=== PATIENT | male | born 1960 | race Caucasian/White ===

== ENCOUNTER 2017-09-22 06:21 | Emergency (ER) | payer MEDICARE ==
[2017-09-22 06:31] VITALS: RESP 18
--- NOTE | 2017-09-22 06:42 | ED ---
General Adult HPI - General Chief complaint: Fall Stated complaint: Weakness Time Seen by Provider: 09/22/17 06:26 Source: patient, EMS Mode of arrival: EMS Limitations: no limitations - History of Present Illness Initial comments: Chetan is a 56-year-old male who presents the ED today via EMS for evaluation of facial injury after an apparent syncopal episode. Patient reports that this morning he got up to use the restroom, he is feeling very lightheaded, he states he was standing in the restroom and the next thing he remembers he was trying to climb up from the ground by gripping the sink and his roommate was standing over him. Patient is uncertain how long he was on the ground. Patient reports he's just been feeling very unwell. He denies any chest pain or palpitations. He denies any nausea or vomiting. He did strike his head, he did have a laceration over his right eyebrow. Patient reports that his last tetanus vaccination was approximately 3 years ago. Upon arrival his only complaint is the pain over his right eyebrow. EMS was contacted for transport to the hospital. [facility] reports that when they found the patient he was tachycardic with heart rate in the 130s and hypotensive, they established IV access and giving him IV fluids. Blood pressure improved to the low 100s. - Related Data Home Medications Medication Instructions Recorded Confirmed Levothyroxine Sodium [Synthroid] 175 mcg PO DAILY 09/22/17 09/22/17 Allergies Allergy/AdvReac Type Severity Reaction Status Date / Time No Known Allergies Allergy Verified 09/22/17 07:24 Review of Systems ROS Statement: Those systems with pertinent positive or pertinent negative responses have been documented in the HPI. ROS Other: All systems not noted in ROS Statement are negative. Constitutional: Reports: weakness Past Medical History Past Medical History: Thyroid Disorder History of Any Multi-Drug Resistant Organisms: None Reported Additional Past Surgical History / Comment(s): thyroidectomy Past Psychological History: No Psychological Hx Reported Smoking Status: Former smoker Past Alcohol Use History: None Reported Past Drug Use History: None Reported General Exam Limitations: no limitations General appearance: alert, in no apparent distress Head exam: Present: normocephalic Eye exam: Present: PERRL, EOMI ENT exam: Present: mucous membranes dry Neck exam: Present: other Respiratory exam: Absent: respiratory distress (Cervical collar in place) Cardiovascular Exam: Present: normal rhythm, tachycardia GI/Abdominal exam: Absent: soft, distended Rectal exam: Present: deferred Extremities exam: Present: normal inspection, full ROM Back exam: Present: normal inspection Neurological exam: Present: alert, oriented X3 Psychiatric exam: Present: normal affect Skin exam: Present: warm, dry, other (Laceration over right eyebrow) Course Vital Signs 09/22/17 09/22/17 09/22/17 06:24 07:38 08:20 Temperature 97.7 F Pulse Rate 135 H 123 H 110 H Respiratory 18 18 18 Rate Blood Pressure 102/61 86/55 89/52 O2 Sat by Pulse 97 99 100 Oximetry EKG Findings - EKG Comments: EKG Findings:: EKG at 6:51 AM, rate 125, rhythm is sinus tachycardia, normal axis, FL is 152, QRS 146, QTC is 461, is a right bundle branch block, there is no acute ST elevations or depressions. There are no previous for comparison. Medical Decision Making - Medical Decision Making Patient was seen and evaluated, history is obtained from the patient and EMS Patient with an apparent syncopal episode resulting in a facial injury The patient was noted to Be tachycardic and hypotensive IV fluids are infusing Labs reveal lactic acidosis of 6.9, IV fluids continued to infuse Troponin mildly elevated, over patient is hypotensive and tachycardic, at this time I'll pursue a computed tomography scan evaluating for possible dissection prior to giving any medications Evaluated CT and see a very large pulmonary wasn't, I discussed this with radiology on-call who agree there is a large cell pulmonary embolus him with evidence of right heart strain High dose heparin was ordered Patient was updated on the findings Laceration was repaired by Dr. Lake Patient care was discussed with Dr. Chang at [facility] recommend continued medical supportive care of patient and transfer when stable Patient remains mildly tachycardic and hypotensive, however he continues to mentate well and maintain a MAP of ~60 At this time I feel the patient will benefit from transfer to [facility] for ECOS - considering the patient's head trauma I do not feel he is an ideal candidate for systemic TPA - would be better served receiving catheter directed therapy. Patient care discussed with Dr. Bazan at [facility] who accepts transfer - Lab Data Result diagrams: 09/22/17 06:52 09/22/17 06:52 Lab Results 09/22/17 09/22/17 09/22/17 Range/Units 06:52 06:52 06:52 WBC 13.0 H (3.8-10.6) k/uL RBC 5.25 (4.30-5.90) m/uL Hgb 14.7 (13.0-17.5) gm/dL Hct 47.5 (39.0-53.0) % MCV 90.6 (80.0-100.0) fL MCH 28.0 (25.0-35.0) pg MCHC 30.9 L (31.0-37.0) g/dL RDW 13.1 (11.5-15.5) % Plt Count 122 L (150-450) k/uL Neutrophils % 73 % Lymphocytes % 22 % Monocytes % 3 % Eosinophils % 1 % Basophils % 0 % Neutrophils # 9.4 H (1.3-7.7) k/uL Lymphocytes # 2.8 (1.0-4.8) k/uL Monocytes # 0.3 (0-1.0) k/uL Eosinophils # 0.2 (0-0.7) k/uL Basophils # 0.1 (0-0.2) k/uL Hypochromasia Slight PT (9.0-12.0) sec INR (<1.2) APTT (22.0-30.0) sec Sodium 138 (137-145) mmol/L Potassium 3.7 (3.5-5.1) mmol/L Chloride 102 (98-107) mmol/L Carbon Dioxide 22 (22-30) mmol/L Anion Gap 14 mmol/L BUN 13 (9-20) mg/dL Creatinine 1.39 H (0.66-1.25) mg/dL Est GFR (CKD-EPI)AfAm 64 (>60 ml/min/1.73 sqM) Est GFR (CKD-EPI)NonAf 56 (>60 ml/min/1.73 sqM) Glucose 262 H (74-99) mg/dL Plasma Lactic Acid Nam (0.7-2.0) mmol/L Calcium 8.8 (8.4-10.2) mg/dL Total Bilirubin 0.7 (0.2-1.3) mg/dL AST 26 (17-59) U/L ALT 25 (21-72) U/L Alkaline Phosphatase 81 (38-126) U/L Total Creatine Kinase 50 L (55-170) U/L CK-MB (CK-2) 1.9 (0.0-2.4) ng/mL CK-MB (CK-2) Rel Index 3.8 Troponin I 0.233 H* (0.000-0.034) ng/mL Total Protein 6.4 (6.3-8.2) g/dL Albumin 3.5 (3.5-5.0) g/dL Serum Alcohol <10 mg/dL Blood Type Blood Type Confirm Blood Type Recheck Antibody Screen Spec Expiration Date 09/22/17 09/22/17 09/22/17 Range/Units 06:52 06:52 06:52 WBC (3.8-10.6) k/uL RBC (4.30-5.90) m/uL Hgb (13.0-17.5) gm/dL Hct (39.0-53.0) % MCV (80.0-100.0) fL MCH (25.0-35.0) pg MCHC (31.0-37.0) g/dL RDW (11.5-15.5) % Plt Count (150-450) k/uL Neutrophils % % Lymphocytes % % Monocytes % % Eosinophils % % Basophils % % Neutrophils # (1.3-7.7) k/uL Lymphocytes # (1.0-4.8) k/uL Monocytes # (0-1.0) k/uL Eosinophils # (0-0.7) k/uL Basophils # (0-0.2) k/uL Hypochromasia PT 11.3 (9.0-12.0) sec INR 1.2 H (<1.2) APTT 26.1 (22.0-30.0) sec Sodium (137-145) mmol/L Potassium (3.5-5.1) mmol/L Chloride (98-107) mmol/L Carbon Dioxide (22-30) mmol/L Anion Gap mmol/L BUN (9-20) mg/dL Creatinine (0.66-1.25) mg/dL Est GFR (CKD-EPI)AfAm (>60 ml/min/1.73 sqM) Est GFR (CKD-EPI)NonAf (>60 ml/min/1.73 sqM) Glucose (74-99) mg/dL Plasma Lactic Acid Nam 6.9 H* (0.7-2.0) mmol/L Calcium (8.4-10.2) mg/dL Total Bilirubin (0.2-1.3) mg/dL AST (17-59) U/L ALT (21-72) U/L Alkaline Phosphatase (38-126) U/L Total Creatine Kinase (55-170) U/L CK-MB (CK-2) (0.0-2.4) ng/mL CK-MB (CK-2) Rel Index Troponin I (0.000-0.034) ng/mL Total Protein (6.3-8.2) g/dL Albumin (3.5-5.0) g/dL Serum Alcohol mg/dL Blood Type A Positive Blood Type Confirm Blood Type Recheck CABO Indicated Antibody Screen NEGATIVE Spec Expiration Date 09/25/2017 - 235109/22/17 Range/Units 07:47 WBC (3.8-10.6) k/uL RBC (4.30-5.90) m/uL Hgb (13.0-17.5) gm/dL Hct (39.0-53.0) % MCV (80.0-100.0) fL MCH (25.0-35.0) pg MCHC (31.0-37.0) g/dL RDW (11.5-15.5) % Plt Count (150-450) k/uL Neutrophils % % Lymphocytes % % Monocytes % % Eosinophils % % Basophils % % Neutrophils # (1.3-7.7) k/uL Lymphocytes # (1.0-4.8) k/uL Monocytes # (0-1.0) k/uL Eosinophils # (0-0.7) k/uL Basophils # (0-0.2) k/uL Hypochromasia PT (9.0-12.0) sec INR (<1.2) APTT (22.0-30.0) sec Sodium (137-145) mmol/L Potassium (3.5-5.1) mmol/L Chloride (98-107) mmol/L Carbon Dioxide (22-30) mmol/L Anion Gap mmol/L BUN (9-20) mg/dL Creatinine (0.66-1.25) mg/dL Est GFR (CKD-EPI)AfAm (>60 ml/min/1.73 sqM) Est GFR (CKD-EPI)NonAf (>60 ml/min/1.73 sqM) Glucose (74-99) mg/dL Plasma Lactic Acid Nam (0.7-2.0) mmol/L Calcium (8.4-10.2) mg/dL Total Bilirubin (0.2-1.3) mg/dL AST (17-59) U/L ALT (21-72) U/L Alkaline Phosphatase (38-126) U/L Total Creatine Kinase (55-170) U/L CK-MB (CK-2) (0.0-2.4) ng/mL CK-MB (CK-2) Rel Index Troponin I (0.000-0.034) ng/mL Total Protein (6.3-8.2) g/dL Albumin (3.5-5.0) g/dL Serum Alcohol mg/dL Blood Type Blood Type Confirm A Positive Blood Type Recheck Antibody Screen Spec Expiration Date Disposition Clinical Impression: Pulmonary embolism, Saddle pulmonary embolus, Syncope, Lactic acid acidosis Disposition: OTHER INSTITUTION NOT DEFINED Condition: Fair Referrals: None,Stated [Primary Care Provider] - 1-2 days Decision Time: 09:40 - Out of Hospital Transfer - Req. Specs Out of Hospital Transfer - Requested Specifics: Other Emergency Center ([facility])
[2017-09-22] MEDS: SODIUM CHLORIDE 0.9% 1,000 ML IV STA ×3 (06:56→09:50)
[2017-09-22 07:03] LABS: Basophils # (A) 0.1 k/uL (0-0.2); Basophils % (A) 0 %; Eosinophils # (A) 0.2 k/uL (0-0.7); Eosinophils % (A) 1 %; HCT 47.5 % (39.0-53.0); HGB 14.7 gm/dL (13.0-17.5); Hypochromasia Slight; Lymphocytes # (A) 2.8 k/uL (1.0-4.8); Lymphocytes % (A) 22 %; MCHC 30.9 g/dL (31.0-37.0); MCV 90.6 fL (80.0-100.0); Mean Platelet Volume 8.4; Monocytes # (A) 0.3 k/uL (0-1.0); Monocytes % (A) 3 %; Neutrophils # (A) 9.4 k/uL (1.3-7.7); Neutrophils % (A) 73 %; Platelet Count 122 k/uL (150-450); RBC 5.25 m/uL (4.30-5.90); RDW 13.1 % (11.5-15.5)
[2017-09-22 07:14] LABS: INR 1.2 (<1.2); Partial Thromboplastin Time 26.1 sec (22.0-30.0); Prothrombin Time 11.3 sec (9.0-12.0)
[2017-09-22 07:15] LABS: ALT 25 U/L (21-72); AST 26 U/L (17-59); Albumin 3.5 g/dL (3.5-5.0); Alcohol <10 mg/dL; Alkaline Phosphatase 81 U/L (38-126); Anion Gap 14 mmol/L; Blood Urea Nitrogen 13 mg/dL (9-20); Calcium 8.8 mg/dL (8.4-10.2); Carbon Dioxide 22 mmol/L (22-30); Chloride 102 mmol/L (98-107); Glucose 262 mg/dL (74-99); Potassium 3.7 mmol/L (3.5-5.1); Sodium 138 mmol/L (137-145); Total Bilirubin 0.7 mg/dL (0.2-1.3); Total Protein 6.4 g/dL (6.3-8.2)
--- NOTE | 2017-09-22 07:35 | CT ---
EXAMINATION TYPE: CT brain cy tony con DATE OF EXAM: 09/22/2017 COMPARISON: HISTORY: Weakness and fall CT DLP: 1491 mGycm, Automated exposure control for dose reduction was used. CONTRAST: Patient injected with 0 mL of Isovue 300. CT of the brain is performed utilizing 3 mm thick sections through the posterior fossa and 3 mm thick sections through the remaining calvarium. Study is performed within 24 hours of arrival to the hospital. No abnormal hyperdensity is present to suggest an acute intracranial hemorrhage. No mass lesion is evident. No acute infarcts are evident. Ventricles and sulci are appropriate for the patient age. Paranasal sinuses and mastoid air cells within the [id number] are clear. IMPRESSIONS: 1. Normal CT brain. CT cervical spine. COMPARISON: None CT of the cervical spine is performed in the axial plane at 2 mm thick sections. Reconstructed image s in the coronal, and sagittal plane are reviewed on the computer. No acute fractures are evident. Vertebral body alignment is normal. Disc space narrowing is present C5-6. Remaining disc heights are preserved. Some mild spurring at C5- 6 is present some endplate spurring into the spinal canal is present at C5-6 with minimal anterior th ecal sac compression. Vertebral body heights are preserved. No spinal canal stenosis is evident. No neural foraminal stenosis is evident. IMPRESSIONS: 1. Degenerative disc changes and endplate changes C5-6.
--- NOTE | 2017-09-22 07:40 | CT ---
EXAMINATION TYPE: CT facial bones wo con DATE OF EXAM: 09/22/2017 COMPARISON: None HISTORY: Weakness and fall CT DLP: 617 mGycm CONTRAST: 0 mL of Isovue 300 The paranasal sinuses are examined in the axial plane at 2 mm thick sections. Reconstructed images i n the coronal plane were obtained. There is dental amalgam scatter artifact present. Some minimal soft tissue swelling over the right fr ontal region and over the left portion of the nasal region may be present.. No displaced fractures ar e evident. Nasal bones appear intact. Maxillary spine is intact. Zygomatic arches and mandible are in tact. Orbital floors appear intact. The maxillary sinuses are clear. Mild mucosal thickening is within the right mid ethmoid air cell. R emaining ethmoid air cells are clear. The sphenoid sinuses are clear. The frontal sinuses are clear . The septum is evaluated. There is septal deviation to the right. The ostiomeatal units are patent. Orbits are symmetrical. Globes are symmetrical. Intraconal and extraconal fat as visualized is unrema rkable. IMPRESSIONS: 1. No acute osseous abnormality.
[2017-09-22 07:42] LABS: Creatine Kinase MB 1.9 ng/mL (0.0-2.4)
[2017-09-22 07:47] LABS: Troponin I 0.233 ng/mL (0.000-0.034)
[2017-09-22] MEDS ORDERED: SODIUM CHLORIDE 0.9% 1,000 ML IV ONE (07:51)
--- NOTE | 2017-09-22 08:08 | XR ---
EXAMINATION TYPE: XR pelvis AP view DATE OF EXAM: 09/22/2017 CLINICAL HISTORY: Syncope and weakness. Pelvic pain. TECHNIQUE: A single AP view of the pelvis is obtained. COMPARISON: None. FINDINGS: There is no acute fracture/dislocation evident in the pelvis. The hip and sacroiliac join ts appear symmetric and unremarkable. The overlying soft tissue appears unremarkable. Mild degenerat champ changes of the lumbosacral spine are noted. IMPRESSION: There is no acute fracture or dislocation in the pelvis.
--- NOTE | 2017-09-22 08:09 | XR ---
EXAMINATION TYPE: XR chest 1V portable DATE OF EXAM: 09/22/2017 COMPARISON: None INDICATION: Syncope weakness trauma fall TECHNIQUE: Single frontal view of the chest is obtained. FINDINGS: The heart size is normal. The pulmonary vasculature is normal. The lungs are clear. No displaced fractures are evident. No pneumothorax is evident. Mediastinum is unremarkable. IMPRESSION: 1. No acute pulmonary process.
[2017-09-22] MEDS ORDERED: HEPARIN SODIUM,PORCINE 5,000 UNIT/ML 1 ML VIAL IV ONE (09:04)
[2017-09-22] MEDS ORDERED: HEPARIN SODIUM,PORCINE 5,000 UNIT/ML 1 ML VIAL IV PRN (09:04)
[2017-09-22] MEDS ORDERED: HEPARIN SOD,PORK IN 0.45% NACL 25,000 UNIT in 0.45% NACL 1 500ML.BAG IV SCH (09:15)
[2017-09-22] MEDS ORDERED: fentaNYL (PF) 50 MCG/ML 2 ML AMP IV STA (09:16)
--- NOTE | 2017-09-22 09:25 | CT ---
EXAMINATION TYPE: CT angio thor/abd pel aorta DATE OF EXAM: 09/22/2017 COMPARISON: NONE HISTORY: pain CT DLP: 1276.1 mGycm. Automated Exposure Control for Dose Reduction was Utilized. CONTRAST: CT scan of the thorax, abdomen and pelvis is performed without and with IV Contrast, patient injected with 80 mL of Isovue 370. FINDINGS: LUNGS: There is a a small wedge-shaped right basilar consolidation that may represent atelectasis or early developing pulmonary infarct. Other scattered areas of subsegmental atelectasis are seen. There is mild background centrilobular and paraseptal emphysematous change with atelectasis or early devel oping fibrosis in the peripheral upper lungs and biapical pleural-parenchymal thickening. There is no pleural effusion or pneumothorax seen. MEDIASTINUM: There is a large burden of acute pulmonary emboli with saddle pulmonary embolus extendin g into the right main, left main, segmental, and subsegmental branches to each pulmonary lobe with oc clusion to the left upper lobe branches and near occlusion to the remaining bilateral branches. There are secondary right heart strain as there is an abnormal right ventricular to left ventricular ratio and enlargement of the main pulmonary artery measuring up to 3.1 cm. Mild calcific atheromatous changes are seen of the thoracic aorta. Ascending thoracic aorta is within normal limits size as is the descending thoracic aorta. Within the posterior mediastinum there is a small hiatal hernia seen. There are no greater than 1 cm hilar or mediastinal lymph nodes. No peric ardial effusion is seen. OTHER: Nondependent adherent secretions versus tracheal polyps are seen on series 3 image 33 and 39 m easuring up to 6 mm in thickness. Bronchoscopy when the patient is stabilized could be performed for further evaluation. Lipoma is incidentally identified within the left diaphragmatic lluvia. LIVER/GB: No significant abnormality is appreciated on angiographic phase of the liver. No cholelithi asis is seen. PANCREAS: No ductal dilatation. Phasic pancreatic parenchymal enhancement is suboptimal to evaluate f or mass. SPLEEN: No splenomegaly. ADRENALS: Somewhat nodular thickening is seen of both adrenal glands although they maintain their nor mal adreniform shape, therefore this is most likely attributable to adrenal gland hyperplasia. KIDNEYS: There is a too small to accurately characterize right posterior cortical midpole renal lesio n. Otherwise the kidneys enhance symmetrically without hydronephrosis. BOWEL: Distal colon is decompressed as is the transverse colon, limiting evaluation. Ascending colon is decompressed to a lesser degree. No small bowel dilatation. GENITAL ORGANS: No gross abnormality seen. LYMPH NODES: No greater than 1cm abdominal or pelvic lymph nodes are appreciated. OSSEOUS STRUCTURES: Osseous structures appear intact. OTHER: Moderate degree of calcific and noncalcific atheromatous plaquing is seen within the aorta. No dissection is evident. IMPRESSION: 1. Sagittal pulmonary embolus with large burden acute pulmonary emboli involving the main pulmonary a rtery, right main pulmonary artery, left main pulmonary artery, occlusive to the segmental and subseg mental branches of the left upper lobes, and nearly occlusive to the lingula and left lower lobes wit hin the segmental and subsegmental pulmonary arteries as well as nearly occlusive to each of the segm ental and subsegmental pulmonary arteries on the right with secondary evidence of right heart strain. Findings were communicated with the ordering ER physician by Dr. Garcia at approximately 9:00 AM on 09/22/2017. 2. No evidence of aortic aneurysm or dissection in the chest, abdomen, or pelvis. 3. Tracheal adherent secretions or polyps which can be evaluated with bronchoscopy on a nonemergent b asis. 4. Right basilar wedge-shaped consolidation which may represent a developing pulmonary infarct or ate lectasis. Additionally there is mild background centrilobular and paraseptal emphysematous changes wi th findings suggesting early fibrosis in the upper lungs.
[2017-09-22 09:43] LABS: Amphetamine Screen,Urine Not Detected (NotDetected); Barbiturate Screen,Urine Not Detected (NotDetected); Benzodiazepines Screen,Urine Not Detected (NotDetected); Cocaine Screen,Urine Not Detected (NotDetected); Methadone Screen, Urine Not Detected (NotDetected); Opiate Screen,Urine Not Detected (NotDetected); Oxycodone Screen, Urine Not Detected (NotDetected); Phencyclidine Screen,Urine Not Detected (NotDetected); Tricyclic Antidepressant,Urine Not Detected (NotDetected); Urn Cannabinoid Scrn Not Detected (NotDetected)
[2017-09-22 09:50] LABS: Appearance,Urine Clear (Clear); Bilirubin,Urine Negative (Negative); Blood,Urine Negative (Negative); Color,Urine Yellow; Glucose,Urine (UA) 1+ (Negative); Granular Casts,Urine 1 /lpf (0); Ketones,Urine Negative (Negative); Leukocyte Esterase,Urine Trace (Negative); Mucus,Urine Rare /hpf; Nitrite,Urine Negative (Negative); Protein,Urine 1+ (Negative); Specific Gravity,Urine 1.033 (1.001-1.035); Squamous Epithelial Cell,Urine 3 /hpf (0-4); WBC,Urine 4 /hpf (0-5)
[2017-09-22 09:53] VITALS: BP 78/56; PULSE 114; TEMP 98.2
--- NOTE | 2017-09-25 02:21 | CDI ---
Documentation Clarification OP Dear Katerin VARGAS, P, DO Please do addendum to ED report that describes the laceration of the eyebrow. Please include the length and depth of the repair. In ED document stated Laceration repaired by Thank you, Sheyla Chase Immigration Manager If you have any question, Please contact coding analyst at [phone] [facility]
== END 2017-09-22 10:03 | disposition other institution (70) ==
LOC: EC 06:21
DX: S01.111A Laceration without foreign body of right eyelid and periocular area, initial encounter (principal); I26.92 Saddle embolus of pulmonary artery without acute cor pulmonale; R55 Syncope and collapse; E87.2 Acidosis; R79.89 Other specified abnormal findings of blood chemistry; R00.0 Tachycardia, unspecified; E07.9 Disorder of thyroid, unspecified; Z87.891 Personal history of nicotine dependence; Z79.899 Other long term (current) drug therapy; W18.00XA Striking against unspecified object with subsequent fall, initial encounter; Y92.002 Bathroom of unspecified non-institutional (private) residence as the place of occurrence of the external cause
CPT/HCPCS: 99291 ×2; 12011 ×2; 96365 ×2; 96376 ×2; 96375 ×2; 96361 ×2; 36415; 93005; 86900; 86901; 80053; 82550; 82553; 83605; 84484; 85025; 85610; 85730; 86850; 81001; 80306; 80320; 72170; 71045; 72125; 70486; 70450; 71275; 74174; J1644 ×2; J3010; Q9967